=== PATIENT | male | born 1995 | race American Indian/Alaskan Native ===

== ENCOUNTER 2019-01-16 07:47 | Emergency (ER) | payer SELFPAY ==
[2019-01-16 07:53] VITALS: BMI 27.3
[2019-01-16 07:56] VITALS: TEMP 98.7
--- NOTE | 2019-01-16 08:16 | ED PDOC ---
Arrival/HPI - General Historian: Patient - History of Present Illness Narrative History of Present Illness (Text): 01/16/19 08:13 CC: do not feel right HPI: 23 yo w/ no PMH comes to ED for evaluation of not feeling right. Patient states that he smoked weed last night at 10 pm. Smoked via rolling papers, denies ingestion of marijuana products. Since then the patient states he has not been feeling right. He has smoked marijuana previously with no complaints. Patient reports that [place] and felt like he was going to pass out. This prompted him to come to the ED. Patient did not pass out but does report feeling nauseous and anxious currently. Patient is concerned the marijuana has been laced with something else. Denies episodes of vomiting, constipation or diarrhea. Denies fevers, chills, chest pain, sob, n/v, constipation or diarrhea, and dysuria. Time/Duration: 24 hours Symptom Onset: Sudden Symptom Course: Unchanged Activities at Onset: Rest Context: Sitting <Nain Montgomery - Last Filed: 01/16/19 09:29> <Dwaine Vanegas - Last Filed: 01/16/19 09:43> - General Chief Complaint: Medical Clearance Time Seen by Provider: 01/16/19 07:58 Past Medical History - Provider Review Nursing Documentation Reviewed: Yes - Cardiac Hx Cardiac Disorders: No - Pulmonary Hx Respiratory Disorders: No - Neurological Hx Neurological Disorder: No - HEENT Hx HEENT Disorder: No - Renal Hx Renal Disorder: No - Endocrine/Metabolic Hx Endocrine Disorders: No Hx Diabetes Mellitus Type 2: No - Hematological/Oncological Hx Blood Disorders: No - Integumentary Hx Dermatological Disorder: No - Musculoskeletal/Rheumatological Hx Musculoskeletal Disorders: No - Gastrointestinal Hx Gastrointestinal Disorders: No - Genitourinary/Gynecological Hx Genitourinary Disorders: No - Psychiatric Hx Psychophysiologic Disorder: No Hx Substance Use: Yes (weed) <Nain Montgomery - Last Filed: 01/16/19 09:29> Family/Social History - Physician Review Nursing Documentation Reviewed: Yes Family/Social History: No Known Family HX Smoking Status: Current Some Days Smoker Hx Alcohol Use: Yes Frequency of alcohol use: Socially Hx Substance Use: Yes (weed) <Nain Montgomery - Last Filed: 01/16/19 09:29> Allergies/Home Meds <Nain Montgomery - Last Filed: 01/16/19 09:29> <Dwaine Vanegas - Last Filed: 01/16/19 09:43> Allergies/Adverse Reactions: Allergies No Known Allergies Allergy (Verified 01/16/19 07:52) Home Medications: Home Meds Medication Instructions Recorded Confirmed No Known Home Med 01/16/19 01/16/19 Review of Systems - Review of Systems Constitutional: Normal. absent: Fatigue, Weight Change, Fevers Eyes: Normal. absent: Vision Changes, Photophobia, Eye Pain ENT: Normal. absent: Hearing Changes, Tinnitus, TMJ Pain Respiratory: Normal. absent: SOB, Cough, Sputum Cardiovascular: Normal. absent: Chest Pain, Palpitations, Edema Gastrointestinal: Nausea. absent: Abdominal Pain, Stool Changes, Constipation, Vomiting, Appetite Changes Genitourinary Male: Normal. absent: Dysuria, Frequency, Hematuria Musculoskeletal: Normal. absent: Arthralgias, Back Pain, Neck Pain Skin: Normal. absent: Rash, Pruritis, Skin Lesions, Laceration Neurological: Normal. absent: Headache, Dizziness Endocrine: Normal. absent: Diaphoresis, Polyuria Psychiatric: Anxiety. absent: Normal, Depression <Nain Montgomery - Last Filed: 01/16/19 09:29> - Physician Review All systems were reviewed & negative as marked: Yes <Dwaine Vanegas - Last Filed: 01/16/19 09:43> Physical Exam Vital Signs Reviewed: Yes Vital Signs Temp Pulse Resp BP Pulse Ox 01/16/19 07:53 98.7 F 103 H 20 132/76 100 Temperature: Afebrile Blood Pressure: Normal Pulse: Tachycardic Respiratory Rate: Normal Appearance: Positive for: Well-Appearing, Non-Toxic, Comfortable Pain Distress: None Mental Status: Positive for: Alert and Oriented X 3 - Systems Exam Head: Present: Atraumatic, Normocephalic. No: Tenderness, Ecchymosis, Abrasion Pupils: Present: PERRL Extroacular Muscles: Present: EOMI Conjunctiva: Present: Normal Mouth: Present: Moist Mucous Membranes Neck: Present: Normal Range of Motion. No: Meningeal Signs, JVD Respiratory/Chest: Present: Clear to Auscultation, Good Air Exchange. No: Respiratory Distress, Accessory Muscle Use Cardiovascular: Present: Normal S1, S2, Tachycardic. No: Regular Rate and Rhythm, Murmurs Abdomen: Present: Normal Bowel Sounds. No: Tenderness, Distention, Peritoneal Signs, Rebound, Guarding Upper Extremity: Present: Normal Inspection. No: Cyanosis, Edema Lower Extremity: Present: Normal Inspection. No: Edema Neurological: Present: GCS=15, CN II-XII Intact, Speech Normal Skin: Present: Warm, Dry, Normal Color. No: Rashes Psychiatric: Present: Alert, Oriented x 3, Normal Insight, Normal Concentration <Nain Montgomery - Last Filed: 01/16/19 09:29> Vital Signs Temp Pulse Resp BP Pulse Ox 01/16/19 09:10 65 18 110/66 99 01/16/19 07:53 98.7 F 103 H 20 132/76 100 <Dwaine Vanegas - Last Filed: 01/16/19 09:43> Medical Decision Making ED Course and Treatment: 01/16/19 08:19 Impression 23 yo w/ no PMH comes to ED for evaluation of not feeling right after smoking marijuana the night before. Plan -CBC -CMP -EKG -UDS Prior Visits No prior visits Progress Notes pending uds and lab work for dispo 01/16/19 09:08 potassium came back at 3.1, repleted with kdur [id number] pending uds 01/16/19 09:29 UDS resulted w/ positive for cannabinoids patient re-assess feeling better with no complaints currently relieved that nothing concerning was found in the blood work Re-evaluation Time: 09:30 Reassessment Condition: Re-examined, Improved - Lab Interpretations Lab Results: 01/16/19 08:20 01/16/19 08:20 Lab Results 01/16/19 08:34: Urine Opiates Screen Negative, Urine Methadone Screen Negative, Ur Barbiturates Screen Negative, Ur Phencyclidine Scrn Negative, Ur Amphetamines Screen Negative, U Benzodiazepines Scrn Negative, U Oth Cocaine Metabols Negative, U Cannabinoids Screen Positive H 01/16/19 08:20: Sodium 139, Potassium 3.1 L, Chloride 106, Carbon Dioxide 24, Anion Gap 12, BUN 11, Creatinine 0.7 L, Est GFR ( Amer) > 60, Est GFR (Non-Af Amer) > 60, Random Glucose 95, Calcium 9.4, Total Bilirubin 0.6, AST 26, ALT 29, Alkaline Phosphatase 60, Total Protein 7.4, Albumin 4.3, Globulin 3.1, Albumin/Globulin Ratio 1.4 01/16/19 08:20: WBC 8.4, RBC 4.42, Hgb 14.0, Hct 41.4 L, MCV 93.7, MCH 31.7, MC HC 33.8, RDW 13.0, Plt Count 179, MPV 11.0, Neut % (Auto) 66.7, Lymph % (Auto) 24.7, [place] % (Auto) 8.0 H, Eos % (Auto) 0.4 L, Baso % (Auto) 0.2, Lymph # (Auto) 2.1, P[place] # (Auto) 0.7 H, Eos # (Auto) 0.0, Baso # (Auto) 0.02, Absolute Neuts (auto) 5.61 I have reviewed the lab results: Yes Interpretation: All labs normal <Nain Montgomery - Last Filed: 01/16/19 09:29> ED Course and Treatment: Patient Seen with Resident: In agreement with resident note which contains more details about the patient. Patient seen and evaluated with resident. Came up with plan and treatment together. 23 year old male presents for evaluation of "not feeling weel" after smoking marijuana last night. Plan: -- EKG -- Labs -- Potassium Chloride, Zofran Inj -- Reassess/dispo 01/16/19 09:30 On re-evaluation, patient is in no acute distress. I have discussed the results and plan with the patient, who expresses understanding. Patient in agreement with plan to be discharged home. Patient is stable for discharge. Patient was instructed to follow up with physician or return if symptoms worsen or new concerning symptoms arise. - Lab Interpretations Lab Results: Total Bilirubin 0.6 mg/dL (0.2-1.3) 01/16/19 08:20 AST 26 U/L (17-59) 01/16/19 08:20 ALT 29 U/L (7-56) 01/16/19 08:20 Alkaline Phosphatase 60 U/L (38-126) 01/16/19 08:20 Total Protein 7.4 g/dL (5.8-8.3) 01/16/19 08:20 Albumin 4.3 g/dL (3.0-4.8) 01/16/19 08:20 Globulin 3.1 gm/dL 01/16/19 08:20 Albumin/Globulin Ratio 1.4 (1.1-1.8) 01/16/19 08:20 - EKG Interpretation EKG Interpretation (Text): 01/16/19 08:52 EKG shows NSR at 95 BPM with normal QRS, IRBBB, no acute ST/T wave abnormalities. Interpreted by me. Interpreted by ED Physician: Yes Type: 12 lead EKG - Medication Orders Current Medication Orders: Discontinued Medications Ondansetron HCl (Zofran Inj) 4 mg IVP STAT STA Stop: 01/16/19 08:13 Last Admin: 01/16/19 08:44 Dose: 4 mg IVP Administration Document 01/16/19 08:44 BB (Rec: 01/16/19 08:44 BB [id number]) Charges for Administration # of IVP Administrations 1 Potassium Chloride (K-Dur 20 Meq Er Tab) 40 meq PO STAT STA Stop: 01/16/19 09:09 <Dwiane Vanegas - Last Filed: 01/16/19 09:43> - PA / COMMERCIAL PAINTER / Resident Statement MD/DO has reviewed & agrees with the documentation as recorded. MD/DO has examined the patient and agrees with the treatment plan. - Scribe Statement The provider has reviewed the documentation as recorded by the Shelton Chery Provider Scribe Attestation: All medical record entries made by the Scribe were at my direction and personally dictated by me. I have reviewed the chart and agree that the record accurately reflects my personal performance of the history, physical exam, medical decision making, and the department course for this patient. I have also personally directed, reviewed, and agree with the discharge instructions and disposition. <Dwaine Vanegas - Last Filed: 01/16/19 09:43> Disposition/Present on Arrival - Present on Arrival Any Indicators Present on Arrival: No History of DVT/PE: No History of Uncontrolled Diabetes: No Urinary Catheter: No History of Decub. Ulcer: No History Surgical Site Infection Following: None - Disposition Have Diagnosis and Disposition been Completed?: Yes Disposition Time: 09:30 Patient Plan: Discharge <Nain Montgomery - Last Filed: 01/16/19 09:29> <Dwaine Vanegas - Last Filed: 01/16/19 09:43> - Disposition Diagnosis: Anxiety attack, Marijuana use Patient Problems: Current Active Problems Problem Status Onset Anxiety attack Acute Marijuana use Acute Condition: FAIR Additional Instructions: 1. Please followup with primary medical doctor within a week for resolution of symptoms 2. Please return to hospital if symptoms worsen or recur. 3. Educated on the side effects of marijuana use including but not limited to anxiety and paranoia. Please refrain from further use. Forms: [employer] (Italian)
[2019-01-16 08:42] LABS: BASO # 0.02 K/mm3 (0.0-2.0); BASO % 0.2 % (0.0-3.0); EOS % 0.4 % (1.5-5.0); LYMPH # 2.1 (1.2-3.4); LYMPH % 24.7 % (22.0-35.0); MEAN CELL VOLUME 93.7 fl (80.0-105.0); MEAN CORPUSCULAR HEMOGLOBIN 31.7 pg (25.0-35.0); MEAN CORPUSCULAR HGB CONC 33.8 g/dl (31.0-37.0); MONO # 0.7 (0.1-0.6); RBC 4.42 10^6/uL (3.5-6.1); WHITE BLOOD COUNT 8.4 10^3/uL (4.5-11.0)
[2019-01-16 08:49] LABS: ALB/GLOB RATIO 1.4 (1.1-1.8); ALBUMIN 4.3 g/dL (3.0-4.8); ALT/SGPT 29 U/L (7-56); AST/SGOT 26 U/L (17-59); BLOOD UREA NITROGEN 11 mg/dL (7-21); CALCIUM 9.4 mg/dL (8.4-10.5); GFR NON-AFRICAN AMERICAN > 60
[2019-01-16] MEDS ORDERED: Potassium Chloride 20 mEq ER Tab PO STA (09:08)
[2019-01-16 09:10] VITALS: BP 110/66; PULSE 65; RESP 18; O2SAT 99
[2019-01-16 09:17] LABS: BARBITURATES, UR NEGATIVE (NEGATIVE); BENZODIAZEPINES, UR NEGATIVE (NEGATIVE); OPIATES, UR NEGATIVE (NEGATIVE); PHENCYCLIDINE, UR NEGATIVE (NEGATIVE)
--- NOTE | 2019-01-16 19:45 | CARD ---
APPROVED REPORT Date of service: 01/16/2019 EKG Measurement Heart [id number] <Conclusion> Normal sinus rhythm Incomplete right bundle branch block NDSTT abnormalities Borderline ECG
== END 2019-01-16 10:07 | disposition home or self-care (01) ==
LOC: ED 07:47
DX: F41.9 Anxiety disorder, unspecified (principal); F12.90 Cannabis use, unspecified, uncomplicated
CPT/HCPCS: 80053; 85025; 93005; 96374; 99282; G0480; J2405